=== PATIENT | female | born 1975 | race Caucasian/White ===

== ENCOUNTER 2018-11-02 17:45 | Emergency (ER) | payer BC ==
[~2018-11-02] VITALS: Ht 162.6 cm; Wt 92.7 kg
[2018-11-02 17:46] VITALS: BP 147/90
[2018-11-02] MEDS ORDERED: FLUO20CA8 PO (17:57)
[2018-11-02] MEDS ORDERED: EPIP0.3I2 IM (17:57)
[2018-11-02] MEDS ORDERED: XANA0.5T PO (17:57)
[2018-11-02] MEDS ORDERED: PHEN30CA2 PO (17:57)
[2018-11-02] MEDS ORDERED: PROAAER10 INH (17:57)
[2018-11-02] MEDS ORDERED: PRED20TA PO (17:57)
[2018-11-02] MEDS ORDERED: ESOM0.1C PO (17:57)
[2018-11-02] MEDS ORDERED: CYCL10TA PO (17:57)
[2018-11-02] MEDS ORDERED: AZIT-12 PO (17:57)
[2018-11-02] MEDS ORDERED: NIFE30TA7 PO (17:57)
[2018-11-02] MEDS ORDERED: ALBUTEROL SULFATE 2.5 MG/0.5 ML INH NEB SOLN NEB ONE (18:30)
[2018-11-02] MEDS ORDERED: IPRATROPIUM 0.5MG/ALBUTEROL 2.5MG INH SOL UD 3ML (DUONEB)(J7620) NEB ONE (18:30)
[2018-11-02] MEDS ORDERED: TUSSICAPS ER 10/8MG CAPSULE PO ONE (19:15)
[2018-11-02] MEDS ORDERED: TUSS1CAP5 PO (19:35)
[2018-11-02] MEDS ORDERED: NEBUMIS2 XX (19:35)
[2018-11-02] MEDS ORDERED: IPRA0.00 NEB (19:35)
== END 2018-11-02 19:48 | disposition home or self-care (01) ==
LOC: M ED 17:45
DX: J45.998 Other asthma (principal); K21.9 Gastro-esophageal reflux disease without esophagitis; Z79.899 Other long term (current) drug therapy; Z91.018 Allergy to other foods

== ENCOUNTER → 2021-07-28 | Outpatient (REF) | payer BC ==
[~2021-07-28] MED LIST: AZIT-12 PO; CYCL-707 PO; EPIP0.3I2 IM; ESOM0.1C PO; FLUO20CA20 PO; IPRA0.00 NEB; NEBUMIS2 XX; NIFE1TAB52 PO; PHEN30CA2 PO; PRED20TA PO; PROAAER10 INH; TUSS1CAP5 PO; XANA0.5T PO
== END ==
LOC: M LABWUC 15:27
PROVIDERS: ATTEND Specialist
DX: N91.1 Secondary amenorrhea (principal)